=== PATIENT | female | born 1960 | race Caucasian/White ===

== ENCOUNTER → 2017-03-06 | Outpatient (CLI) | payer OTHER | LOC: FIMAGING 07:19 | PROVIDERS: ATTEND Physician Assistant Medical | DX: R10.2 Pelvic and perineal pain (principal); Z90.721 Acquired absence of ovaries, unilateral ==

== ENCOUNTER → 2017-04-30 | Outpatient (CLI) | payer OTHER | LOC: FIMAGING 16:17 | PROVIDERS: ATTEND Physician Assistant Medical | DX: Z12.31 Encounter for screening mammogram for malignant neoplasm of breast (principal) ==

== ENCOUNTER → 2018-05-27 | Outpatient (CLI) | payer OTHER | LOC: FIMAGING 07:34 | PROVIDERS: ATTEND Internal Medicine | DX: Z12.31 Encounter for screening mammogram for malignant neoplasm of breast (principal) ==

== ENCOUNTER 2018-07-01 08:43 | Emergency (ER) | payer OTHER ==
--- NOTE | 2018-07-01 09:05 | EDPHY ---
HPI/HX/ROS/PE/MDM Narrative: CHIEF COMPLAINT: Neck pain, visual disturbance, nausea HPI: This patient is a 58-year-old female with history of hypertension. She complains of neck pain, nausea, and visual disturbances beginning this morning. She was driving to work around 7:30 and initially developed a visual disturbance in her right eye which she describes as a blind spot while looking forward. This lasted 10 minutes, then it seemed as if she were looking through a kaleidoscope for another 20 minutes. She has a painful pressure sensation at the base of her neck which is primarily right-sided. She endorses nausea. She denies headache or any numbness or paresthesias in her extremities. She denies any recent trauma or chiropractic manipulation. She denies history of headaches or migraines. The patient notes that she has history of chest pains and recently followed up with her primary care provider for a routine physical and subsequent heart scan at [facility]. Her physician called her yesterday to schedule an appointment to discuss results, but she does not yet know the outcome of this scan. She is scheduled to follow up tomorrow. REVIEW OF SYSTEMS: A comprehensive 10 system review of systems is otherwise negative aside from elements mentioned in the history of present illness and medical decision making. PMH:Hypertension (metoprolol). SOCIAL HISTORY: Employed, works in communications PHYSICAL EXAM: General:Patient is alert, in no acute distress. ENT:Eyes are normal to inspection. ENT inspection normal. Neck: Normal inspection. Full range of motion. Respiratory:No respiratory distress. Breath sounds normal bilaterally. Cardiovascular: Regular rate and rhythm. Strong peripheral pulses. Normal cap refill. Abdomen:The abdomen is nontender to palpation. There are no peritoneal signs. There are normal bowel sounds. Back: Normal to inspection. No tenderness to palpation. Skin: Normal color. No rash. Warm and dry. Extremities: Normal appearance. Full range of motion. Neuro: Oriented x3. Normal motor function. Normal sensory function. Normal [id number]. No pronator drift. ED Course: 58 y/o female presents with neck pain, visual disturbances, and nausea. Exam largely unremarkable, no neurologic deficits appreciated. The patient declines any antiemetics or pain medication at this time. Plan for EKG, labs including CBC, chemistries, POC troponin. Plan for CT head and CTA head/neck for further evaluation. 09:00 EKG was ordered and interpreted by myself. Please see [facility] system for official reading. Sinus rhythm, rate 53. No evidence of ischemia / arrhythmia. 09:12 Creat 1.0. I-stat otherwise unremarkable. Patient may proceed for CT angiograms as above. POC troponin negative. Labs otherwise largely unremarkable. 11:[address] Anaya, radiologist. CT head and CTA head/neck are negative for acute processes. Reassessed patient. Discussed imaging and laboratory results. Plan to discharge home in good condition with referral to neurology. Follow up and return precautions discussed. She is comfortable with this plan. MDM: This patient presents with transient unilateral visual loss with scintillating scotoma. These symptoms have now resolved. Her neurologic exam is normal. CT/ CTA is negative. I discussed options with her including need for MRI - she prefers to decline MRI at this time and be discharged, with close outpatient follow-up. I have referred her to Neurology. I suspect this represents a complex migraine, but she will need MRI to cement this diagnosis. We discussed strict return precautions. - Data Points Imaging Results: Imaging Impressions Head CT 07/01/18 09:07 Impression: 1. Normal head CT. 2. Normal CT angiogram of the head and neck. Stenoses are calculated using [place] Symptomatic Carotid Endarterectomy Trial (NASCET) criteria. Findings and recommendations discussed with Harry Ocampo MD at 1102 hour, 07/01/2018. Head CTA 07/01/18 09:08 Impression: 1. Normal head CT. 2. Normal CT angiogram of the head and neck. Stenoses are calculated using [place] Symptomatic Carotid Endarterectomy Trial (NASCET) criteria. Findings and recommendations discussed with Harry Ocampo MD at 1102 hour, 07/01/2018. Neck CTA 07/01/18 09:08 Impression: 1. Normal head CT. 2. Normal CT angiogram of the head and neck. Stenoses are calculated using [place] Symptomatic Carotid Endarterectomy Trial (NASCET) criteria. Findings and recommendations discussed with Harry Ocampo MD at 1102 hour, 07/01/2018. Imaging: Discussed imaging studies w/ scallop cutter Radiologist Laboratory Results: Laboratory Results 07/01/18 09:02 07/01/18 09:02 07/01/18 07/01/18 07/01/18 09:11 09:07 09:02 WBC RBC Hgb POC Hgb 13.9 gm/dL gm/dL (12.6-16.3) Hct POC Hct 41 % % (38-47) MCV MCH MCHC RDW Plt Count MPV Neut % (Auto) Lymph % (Auto) Rowan % (Auto) Eos % (Auto) Baso % (Auto) Nucleat RBC Rel Count Absolute Neuts (auto) Absolute Lymphs (auto) Absolute Monos (auto) Absolute Eos (auto) Absolute Basos (auto) Absolute Nucleated RBC Immature Gran % Immature Gran # POC Sodium 142 mEq/L mEq/L (135-145) Sodium 139 mEq/L mEq/L (135-145) POC Potassium 3.8 mEq/L mEq/L (3.3-5.0) Potassium 4.3 mEq/L mEq/L (3.5-5.2) POC Chloride 107 mEq/L mEq/L (97-110) Chloride 105 mEq/L mEq/L (97-110) Carbon Dioxide 22 mEq/l mEq/l (22-31) POC Total CO2 24 mEq/L mEq/L (22-31) Anion Gap 12 mEq/L mEq/L (6-14) POC BUN 16 mg/dL mg/dL (7-23) BUN 18 mg/dL mg/dL (7-23) Creatinine 0.9 mg/dL mg/dL (0.6-1.0) POC Creatinine 1.0 mg/dL mg/dL (0.6-1.0) Estimated GFR > 60 Glucose 82 mg/dL mg/dL (70-100) POC Glucose 87 mg/dL mg/dL (70-100) Calcium 10.0 mg/dL mg/dL (8.5-10.4) POC Troponin I 0.00 ng/mL ng/mL (0.00-0.08) 07/01/18 09:02 WBC 8.46 10^3/uL 10^3/uL (3.80-9.50) RBC 4.23 10^6/uL 10^6/uL (4.18-5.33) Hgb 13.5 g/dL g/dL (12.6-16.3) POC Hgb Hct 40.5 % % (38.0-47.0) POC Hct MCV 95.7 fL fL (81.5-99.8) MCH 31.9 pg pg (27.9-34.1) MCHC 33.3 g/dL g/dL (32.4-36.7) RDW 12.7 % % (11.5-15.2) Plt Count 342 10^3/uL 10^3/uL (150-400) MPV 9.4 fL fL (8.7-11.7) Neut % (Auto) 74.5 % H % (39.3-74.2) Lymph % (Auto) 17.0 % % (15.0-45.0) Rowan % (Auto) 5.8 % % (4.5-13.0) Eos % (Auto) 1.7 % % (0.6-7.6) Baso % (Auto) 0.8 % % (0.3-1.7) Nucleat RBC Rel Count 0.0 % % (0.0-0.2) Absolute Neuts (auto) 6.30 10^3/uL 10^3/uL (1.70-6.50) Absolute Lymphs (auto) 1.44 10^3/uL 10^3/uL (1.00-3.00) Absolute Monos (auto) 0.49 10^3/uL 10^3/uL (0.30-0.80) Absolute Eos (auto) 0.14 10^3/uL 10^3/uL (0.03-0.40) Absolute Basos (auto) 0.07 10^3/uL 10^3/uL (0.02-0.10) Absolute Nucleated RBC 0.00 10^3/uL 10^3/uL (0-0.01) Immature Gran % 0.2 % % (0.0-1.1) Immature Gran # 0.02 10^3/uL 10^3/uL (0.00-0.10) POC Sodium Sodium POC Potassium Potassium POC Chloride Chloride Carbon Dioxide POC Total CO2 Anion Gap POC BUN BUN Creatinine POC Creatinine Estimated GFR Glucose POC Glucose Calcium POC Troponin I Point of Care Test Results: Chemistry 07/01/18 07/01/18 09:11 09:07 POC Sodium 142 mEq/L mEq/L (135-145) POC Potassium 3.8 mEq/L mEq/L (3.3-5.0) POC Chloride 107 mEq/L mEq/L (97-110) POC Total CO2 24 mEq/L mEq/L (22-31) POC BUN 16 mg/dL mg/dL (7-23) POC Creatinine 1.0 mg/dL mg/dL (0.6-1.0) POC Glucose 87 mg/dL mg/dL (70-100) POC Troponin I 0.00 ng/mL ng/mL (0.00-0.08) ISTAT H&H 07/01/18 09:11 POC Hgb 13.9 gm/dL gm/dL (12.6-16.3) POC Hct 41 % % (38-47) General Time Seen by Provider: 07/01/18 08:53 Initial Vital Signs: Initial Vital Signs Temperature (C) 36.6 C 07/01/18 08:47 Heart Rate 54 L 07/01/18 08:47 Respiratory Rate 18 07/01/18 08:47 Blood Pressure 132/90 H 07/01/18 08:47 O2 Sat (%) 97 07/01/18 08:47 O2 Delivery Mode Room Air Allergies/Adverse Reactions: No Known Allergies Allergy (Unverified 07/01/18 08:46) Home Medications: Medication Instructions Recorded Metoprolol Succinate 07/01/18 Departure - Departure Disposition: Home, Routine, Self-Care Clinical Impression: Neck pain, Ocular migraine Condition: Good Instructions: Migraine Headache (ED), Ocular Migraine (ED), Acute Neck Pain (ED ) Additional Instructions: Follow up with your primary care provider in 2-3 days. Follow up with neurology as we discussed. Return to the emergency department immediately for recurrence of symptoms, nausea, vomiting, numbness, weakness, severe pain, numbness, weakness, tingling , headache, difficulty walking, fever, or other concerns. Use Tylenol and/or ibuprofen as directed on the packaging as needed for pain. Referrals: Werner Mccartney MD [Medical Doctor] - As per Instructions Report Scribed for: Harry Ocampo Report Scribed by: Danielle Madera Date of Report: 07/01/18 Time of Report: 09:15 Physician Review and Approval Statement: Portions of this note were transcribed by an ED scribe. I personally performed the history, physical exam, and medical decision making; and confirm the accuracy of the information in the transcribed note.
[2018-07-01 09:10] LABS: PLATELET COUNT 342 10^3/uL (150-400)
[2018-07-01] MEDS ORDERED: IOPAMIDOL (ISOVUE-370) 150 ML BTL IV ONE (09:15)
[2018-07-01 11:42] VITALS: BP 134/78
--- NOTE | 2018-07-01 14:09 | CPEKG ---
Test Reason : OPEN Blood Pressure : / mmHG Vent. Rate : 053 BPM Atrial Rate : 049 BPM P-R Int : 168 ms QRS Dur : 086 ms QT Int : 461 ms P-R-T Axes : 039 059 048 degrees QTc Int : 433 ms Sinus rhythm Confirmed by Harry Ocampo ([id number]) on 07/01/2018 2:08:48 PM Referred By: Harry Ocampo Confirmed By:Harry Ocampo
== END 2018-07-01 11:50 | disposition home or self-care (01) ==
DX: M54.2 Cervicalgia (principal); G43.909 Migraine, unspecified, not intractable, without status migrainosus; I10 Essential (primary) hypertension
CPT/HCPCS: 82435-PO; 82565-PO; 82947-PO; 84132-PO; 84295-PO; 84484-ER; 84520-PO; 85014-ER; Q9967